=== PATIENT | male | born 1995 | race African-American/Black ===

== ENCOUNTER 2018-05-28 07:26 | Emergency (ER) | payer OTHER ==
[2018-05-28] MEDS: KETOROLAC 60 MG/2 ML VIAL (J1885) IM ×2 (08:15→08:22)
== END 2018-05-28 09:03 | disposition home or self-care (01) ==
LOC: M ED 07:26
DX: M25.561 Pain in right knee (principal); M25.562 Pain in left knee; S33.5XXA Sprain of ligaments of lumbar spine, initial encounter
CPT/HCPCS: J1885

== ENCOUNTER 2018-06-17 13:15 | Inpatient (IN) | payer OTHER ==
[2018-06-17 14:19] LABS: HEMATOCRIT 48.5 % (42.0-52.0); HEMOGLOBIN 16.8 g/dl (13.5-17.5); MEAN CORPUSCULAR HEMOGLOBIN 30.2 pg (27.0-33.0); MEAN CORPUSCULAR HGB CONC 34.6 g/dl (32.0-36.5); MEAN CORPUSCULAR VOLUME 87.1 fl (80.0-96.0); PLATELET COUNT, AUTOMATED 234 10^3/uL (150-450); RED BLOOD COUNT 5.57 10^6/uL (4.30-6.10); RED CELL DISTRIBUTION WIDTH 12.4 % (11.5-14.5); WHITE BLOOD COUNT 13.1 10^3/uL (4.0-10.0)
[2018-06-17 14:40] LABS: AMPHETAMINES LEVEL URINE NEGATIVE (NEGATIVE); BARBITURATES URINE NEGATIVE (NEGATIVE); BENZODIAZEPINES URINE NEGATIVE (NEGATIVE); CANNABINOIDS URINE NEGATIVE (NEGATIVE); COCAINE METABOLITE URINE NEGATIVE (NEGATIVE); METHADONE URINE NEGATIVE (NEGATIVE); OPIATES URINE NEGATIVE (NEGATIVE); PHENCYCLIDINE URINE NEGATIVE (NEGATIVE)
[2018-06-17 15:03] LABS: ACETAMINOPHEN LEVEL < 2.0 UG/ML (10.0-30.0); ALBUMIN 4.4 GM/DL (3.2-5.2); ALBUMIN/GLOBULIN RATIO 1.38 (1.00-1.93); ALKALINE PHOSPHATASE 73 U/L (45-117); ALT/SGPT 51 U/L (12-78); ANION GAP 8 MEQ/L (8-16); AST/SGOT 24 U/L (7-37); BILIRUBIN,DIRECT 0.2 MG/DL (0.0-0.2); BILIRUBIN,TOTAL 0.8 MG/DL (0.2-1.0); BLOOD UREA NITROGEN 15 MG/DL (7-18); CALCIUM LEVEL 9.8 MG/DL (8.5-10.1); CARBON DIOXIDE LEVEL 28 MEQ/L (21-32); CHLORIDE LEVEL 103 MEQ/L (98-107); ETHYL ALCOHOL (ETHANOL) < 0.003 % (0.000-0.010); GLOMERULAR FILTRATION RATE > 60.0 (>60); GLUCOSE, FASTING 84 MG/DL (70-100); POTASSIUM SERUM 4.2 MEQ/L (3.5-5.1); SALICYLATE LEVEL < 1.7 MG/DL (5.0-30.0); SODIUM LEVEL 139 MEQ/L (136-145); TOTAL PROTEIN 7.6 GM/DL (6.4-8.2)
[2018-06-17] MEDS ORDERED: OLANZapine ORAL DISINTEGRATING TAB 5MG PO (21:45)
[2018-06-17] MEDS ORDERED: MOM 30ML SUSPENSION UDC PO (21:45)
[2018-06-17] MEDS ORDERED: MAALOX 30 ML SUSP *UDC PO (21:45)
[2018-06-18] MEDS: COLCHICINE 0.6 MG TAB PO (09:02)
[2018-06-18] MEDS: VITAMIN D 1,000 INTERNATIONAL UNITS TABLET PO (09:02)
[2018-06-18] MEDS: MULTIVITAMINS/MINERALS THERAP 1 TAB PO (09:02)
[2018-06-18] MEDS: METHOCARBAMOL 500 MG TAB PO ×2 (10:18→16:42)
[2018-06-18 11:48] LABS: THYROID STIMULATING HORMONE 0.805 uIU/ML (0.358-3.740)
[2018-06-18] MEDS: traZODone 50 MG TAB PO (20:13)
[2018-06-18] MEDS: QUEtiapine FUMARATE 200 MG TAB PO (20:13)
[2018-06-18] MEDS ORDERED: SERTRALINE 100 MG TAB PO (21:00)
[2018-06-19 07:22] LABS: HEMATOCRIT 49.8 % (42.0-52.0); HEMOGLOBIN 16.8 g/dl (13.5-17.5); MEAN CORPUSCULAR HEMOGLOBIN 29.8 pg (27.0-33.0); MEAN CORPUSCULAR HGB CONC 33.7 g/dl (32.0-36.5); MEAN CORPUSCULAR VOLUME 88.5 fl (80.0-96.0); PLATELET COUNT, AUTOMATED 225 10^3/uL (150-450); RED BLOOD COUNT 5.63 10^6/uL (4.30-6.10); RED CELL DISTRIBUTION WIDTH 12.3 % (11.5-14.5); WHITE BLOOD COUNT 8.8 10^3/uL (4.0-10.0)
[2018-06-19] MEDS: MULTIVITAMINS/MINERALS THERAP 1 TAB PO (10:13)
[2018-06-19] MEDS: VITAMIN D 1,000 INTERNATIONAL UNITS TABLET PO (10:13)
[2018-06-19] MEDS: COLCHICINE 0.6 MG TAB PO (10:13)
[2018-06-19] MEDS: METHOCARBAMOL 500 MG TAB PO (10:55)
[2018-06-19] MEDS: QUEtiapine FUMARATE 100 MG TAB PO (20:27)
[2018-06-20] MEDS: MULTIVITAMINS/MINERALS THERAP 1 TAB PO (08:04)
[2018-06-20] MEDS: COLCHICINE 0.6 MG TAB PO (08:04)
[2018-06-20] MEDS: VITAMIN D 1,000 INTERNATIONAL UNITS TABLET PO (08:04)
[2018-06-20] MEDS: METHOCARBAMOL 500 MG TAB PO ×2 (08:14→14:17)
[2018-06-20] MEDS: QUEtiapine FUMARATE 200 MG TAB PO (20:08)
[2018-06-21] MEDS: METHOCARBAMOL 500 MG TAB PO ×2 (08:58→19:30)
[2018-06-21] MEDS: MULTIVITAMINS/MINERALS THERAP 1 TAB PO (08:58)
[2018-06-21] MEDS: VITAMIN D 1,000 INTERNATIONAL UNITS TABLET PO (08:58)
[2018-06-21] MEDS: COLCHICINE 0.6 MG TAB PO (08:58)
[2018-06-21] MEDS: QUEtiapine FUMARATE 200 MG TAB PO (20:56)
[2018-06-21] MEDS: traZODone 50 MG TAB PO (22:01)
[2018-06-22] MEDS: VITAMIN D 1,000 INTERNATIONAL UNITS TABLET PO (08:06)
[2018-06-22] MEDS: COLCHICINE 0.6 MG TAB PO (08:06)
[2018-06-22] MEDS: MULTIVITAMINS/MINERALS THERAP 1 TAB PO (08:06)
[2018-06-22] MEDS: METHOCARBAMOL 500 MG TAB PO ×2 (08:07→21:03)
[2018-06-22] MEDS: QUEtiapine FUMARATE 200 MG TAB PO (21:03)
[2018-06-22] MEDS: traZODone 50 MG TAB PO (22:18)
[2018-06-23] MEDS: VITAMIN D 1,000 INTERNATIONAL UNITS TABLET PO (09:17)
[2018-06-23] MEDS: METHOCARBAMOL 500 MG TAB PO ×2 (09:17→20:38)
[2018-06-23] MEDS: MULTIVITAMINS/MINERALS THERAP 1 TAB PO (09:17)
[2018-06-23] MEDS: COLCHICINE 0.6 MG TAB PO (09:17)
[2018-06-23] MEDS: ACETAMINOPHEN TAB 650MG DOSE (2X325MG) PO (12:24)
[2018-06-23] MEDS: traZODone 50 MG TAB PO (20:38)
[2018-06-23] MEDS: QUEtiapine FUMARATE 200 MG TAB PO (20:38)
[2018-06-24] MEDS: COLCHICINE 0.6 MG TAB PO (08:20)
[2018-06-24] MEDS: MULTIVITAMINS/MINERALS THERAP 1 TAB PO (08:20)
[2018-06-24] MEDS: VITAMIN D 1,000 INTERNATIONAL UNITS TABLET PO (08:20)
[2018-06-24] MEDS: METHOCARBAMOL 500 MG TAB PO (11:13)
== END 2018-06-24 14:00 | disposition home or self-care (01) | DRG 885 ==
LOC: M ED 13:15 → M ED INP 18:34 → M PSY 20:35
PROVIDERS: Psychiatry & Neurology Psychiatry
DX: F20.0 Paranoid schizophrenia (principal); F60.2 Antisocial personality disorder; Z79.899 Other long term (current) drug therapy; F41.9 Anxiety disorder, unspecified; M10.9 Gout, unspecified; M54.5 Low back pain; F17.200 Nicotine dependence, unspecified, uncomplicated; D72.829 Elevated white blood cell count, unspecified